=== PATIENT | male | born 1975 | race African-American/Black ===

== ENCOUNTER 2016-10-07 14:43 | Emergency (ER) | payer MEDICAID ==
[2016-10-07 14:51] VITALS: BP 137/87; PULSE 78; RESP 18; TEMP 98.4
--- NOTE | 2016-10-07 15:11 | ED ---
General Adult HPI - General Chief complaint: Urogenital Stated complaint: STD Test Time Seen by Provider: 10/07/16 15:00 Source: patient, RN notes reviewed Mode of arrival: ambulatory Limitations: no limitations - History of Present Illness Initial comments: this is a 41-year-old male who presents with penile discharge 2 days. Patient also complains of burning with urination. Patient states he thinks he contracted an STD and says this has happened to him before with similar symptoms. Patient denies any fever/chills or abdominal pain. Patient denies any open penile sores. Patient denies any recent shortness breath, chest pain, abdominal pain, nausea/vomiting/diarrhea, back pain, numbness, tingling, hematuria, headache, or visual changes, or any other complaints. - Related Data Previous Rx's Medication Instructions Recorded Doxycycline [Vibramycin] 100 mg PO Q12HR 7 Days 10/07/16 Allergies Allergy/AdvReac Type Severity Reaction Status Date / Time No Known Allergies Allergy Verified 10/07/16 14:51 Review of Systems ROS Statement: Those systems with pertinent positive or pertinent negative responses have been documented in the HPI. ROS Other: All systems not noted in ROS Statement are negative. Past Medical History Past Medical History: No Reported History History of Any Multi-Drug Resistant Organisms: None Reported Past Surgical History: Orthopedic Surgery Additional Past Surgical History / Comment(s): PORTILLO KNEE SURGERY Past Psychological History: No Psychological Hx Reported Smoking Status: Current every day smoker Past Alcohol Use History: None Reported Past Drug Use History: None Reported General Exam - General Exam Comments Initial Comments: General: The patient is awake and alert, in no distress, and does not appear acutely ill. Neck: The neck is supple, there is no tenderness or JVD. Cardiovascular: There is a regular rate and rhythm. No murmur, rub or gallop is appreciated. Respiratory: Lungs are clear to auscultation, respirations are non-labored, breath sounds are equal. No wheezes, stridor, rales, or rhonchi. Gastrointestinal: Soft, non-distended, non-tender abdomen without masses or organomegaly noted. There is no rebound or guarding present. No CVA tenderness. Bowel sounds are unremarkable. Musculoskeletal: Normal ROM, no tenderness. Strength 5/5. Sensation intact. Radial Pulses equal bilaterally 2+. Neurological: A&O x 3. CN II-XII intact, There are no obvious motor or sensory deficits. Coordination appears grossly intact. Speech is normal. Skin: Skin is warm and dry and no rashes or lesions are noted. Psychiatric: Cooperative, appropriate mood & affect, normal judgment. Limitations: no limitations Course Vital Signs 10/07/16 14:49 Temperature 98.4 F Pulse Rate 78 Respiratory 18 Rate Blood Pressure 137/87 O2 Sat by Pulse 100 Oximetry Medical Decision Making - Medical Decision Making This is a 41-year-old male presents with complaints of penile discharge. On physical exam abdomen is soft, nondistended and nontender. The urinalysis was done and reviewed and was negative for UTI. GC via urine are pending. Patient refused genital cultures at this time stating he has had these symptoms before and was treated with Rocephin successfully. At this time patient will be treated with Rocephin in the [facility] today. Patient was given a prescription for doxycycline. Patient was instructed to follow-up with his primary care physician in one to 2 days or return to the [facility] for any worsening symptoms or for any further concerns. Patient was receptive to this plan and patient will be discharged home. I discussed this case with attending physician Dr. Moy who agrees with plan as stated above. - Lab Data Lab Results 10/07/16 Range/Units 14:52 Urine Color Light Yellow Urine Appearance Clear (Clear) Urine pH 5.5 (5.0-8.0) Ur Specific [place] 1.001 (1.001-1.035) Urine Protein Negative (Negative) Urine Glucose (UA) Negative (Negative) Urine Ketones Negative (Negative) Urine Blood Negative (Negative) Urine Nitrate Negative (Negative) Urine Bilirubin Negative (Negative) Urine Urobilinogen <2.0 (<2.0) mg/dL Ur Leukocyte Esterase Trace H (Negative) Urine WBC 2 (0-5) /hpf Disposition Clinical Impression: Penile discharge Disposition: HOME SELF-CARE Condition: Good Instructions: Sexually Transmitted Diseases (ED) Additional Instructions: Please use antibiotics as prescribed. Please follow-up with primary care physician in one to 2 days or return to the [facility] for any worsening symptoms or for any further concerns. Prescriptions: Doxycycline [Vibramycin] 100 mg PO Q12HR 7 Days Referrals: None,Stated [Primary Care Provider] - 1-2 days Time of Disposition: 15:46
[2016-10-07] MEDS ORDERED: cefTRIAXone 250 MG VIAL IM STA (15:12)
[2016-10-07 15:21] LABS: Appearance,Urine Clear (Clear); Bilirubin,Urine Negative (Negative); Glucose,Urine (UA) Negative (Negative); Ketones,Urine Negative (Negative); Leukocyte Esterase,Urine Trace (Negative); Nitrite,Urine Negative (Negative); PH, Urine 5.5 (5.0-8.0); Particle Count 408; Protein,Urine Negative (Negative); Specific Gravity,Urine 1.001 (1.001-1.035); UA Billing (MACRO vs. MICRO) MICRO; Urobilinogen,Urine <2.0 mg/dL (<2.0); WBC,Urine 2 /hpf (0-5)
== END 2016-10-07 15:53 | disposition home or self-care (01) ==
LOC: EC 14:43
DX: A64 Unspecified sexually transmitted disease (principal); F17.200 Nicotine dependence, unspecified, uncomplicated
CPT/HCPCS: 99283; 96372; 81001; 87491; 87591; 87086; J0696